=== PATIENT | male | born 1955 | race Caucasian/White ===

== ENCOUNTER → 2018-08-23 | Outpatient (CLI) | payer MEDICARE ==
[~2018-08-23] MED LIST: ASPIRIN 81M81 MG/TA2 PO; ATIVAN 2MG/ML2 MG/ML IV; DILANTIN 100MG100 MG PO; EPITOL; LIPITOR 40MG TA40 MG PO; LOVENOX 4040 MG/0.4 SQ; PRINIVIL20 MG PO
[2018-08-23 14:25] LABS: ALANINE AMINOTRANSFERASE 17 U/L (21-72); AST,SGOT 66 U/L (15-37); CREATINE KINASE 37 U/L (55-170)
== END ==
LOC: ZCOL.LAB 11:57
PROVIDERS: Family Medicine
DX: Z51.81 Encounter for therapeutic drug level monitoring (principal)